=== PATIENT | female | born 1960 | race Caucasian/White ===

== ENCOUNTER 2018-03-02 09:19 | Outpatient (CLI) | payer BC | END 2018-03-02 09:20 | disposition home or self-care (01) | LOC: BICMAMMO 09:19 | PROVIDERS: ATTEND Nurse Practitioner Family | DX: R92.8 Other abnormal and inconclusive findings on diagnostic imaging of breast (principal); Z85.3 Personal history of malignant neoplasm of breast; Z80.3 Family history of malignant neoplasm of breast; L90.5 Scar conditions and fibrosis of skin | CPT/HCPCS: 77066; G0279 ==

== ENCOUNTER 2018-08-12 09:25 | Outpatient (CLI) | payer BC | END 2018-08-12 09:26 | disposition home or self-care (01) | LOC: BICMAMMO 09:25 | PROVIDERS: ATTEND Obstetrics & Gynecology | DX: Z08 Encounter for follow-up examination after completed treatment for malignant neoplasm (principal); R92.2 Inconclusive mammogram; Z98.890 Other specified postprocedural states; Z80.3 Family history of malignant neoplasm of breast; Z85.3 Personal history of malignant neoplasm of breast | CPT/HCPCS: 77066; G0279 ==

== ENCOUNTER 2019-08-16 12:38 | Outpatient (CLI) | payer BC ==
--- NOTE | 2019-08-16 14:13 | MMO ---
Bilateral MAMMO Bilat Diag [facility]. CLINICAL HISTORY: Patient is 58 years old and is seen for diagnostic exam. The patient has no family history of breast cancer. The patient has a history of Ultrasound guided core biopsy procedure revealed invasive ductal right breast carcinoma in July,. The patient has a history of right Ultrasound Guided Core Biopsy in July, and right Lumpectomy in 2016 - malignant. VIEWS: The views performed were: bilateral craniocaudal with tomosynthesis; bilateral mediolateral oblique with tomosynthesis; and bilateral mediolateral with tomosynthesis. FILMS COMPARED: The present examination has been compared to prior imaging studies performed at [facility] on 09/09/2016, 08/11/2017, 03/02/2018 and 08/12/2018. This study has been interpreted with the assistance of computer-aided detection. MAMMOGRAM FINDINGS: There are scattered fibroglandular densities. There is a post-surgical scar seen in the posterior upper-outer region of the right breast. Finding remains unchanged from the prior study. There are no suspicious masses, suspicious calcifications, or new areas of architectural distortion. IMPRESSION: THERE IS NO MAMMOGRAPHIC EVIDENCE OF MALIGNANCY. A ROUTINE FOLLOW-UP MAMMOGRAM IN 1 YEAR IS RECOMMENDED. THE RESULTS OF THIS EXAM WERE SENT TO THE PATIENT. ACR BI-RADS Category 2 - Benign finding MAMMOGRAPHY NOTE: 1. A negative mammogram report should not delay a biopsy if a dominant of clinically suspicious mass is present. 2. Approximately 10% to 15% of breast cancers are not detected by mammography. 3. Adenosis and dense breasts may obscure an underlying neoplasm. Reported by: ELLIE BOOTH MD Electonically Signed: [id number]
== END 2019-08-16 12:39 | disposition home or self-care (01) ==
LOC: BICMAMMO 12:38
PROVIDERS: ATTEND Obstetrics & Gynecology
DX: Z08 Encounter for follow-up examination after completed treatment for malignant neoplasm (principal); Z85.3 Personal history of malignant neoplasm of breast
CPT/HCPCS: 77066; G0279

== ENCOUNTER 2020-03-27 09:17 | Outpatient (CLI) | payer BC ==
--- NOTE | 2020-03-27 11:27 | BD ---
BONE DENSITOMETRY USING DEXA: Date: 03/27/2020 HISTORY: Postmenopausal screening for osteoporosis. FINDINGS: Lumbar Spine: BMD (g/cm2) L1 0.883 T-Score: -1.0 Z-Score: 0.2 L2 0.873 T-Score: -7.4 Z-Score: -0.1 L3 0.904 T-Score: -1.6 Z-Score: -0.2 L4 0.947 T-Score: -1.0 Z-Score: 0.4 L1-L4 0.903 T-Score: -1.3 Z-Score: 0.1 Femoral Neck: 0.677 T-Score: -1.6 Z-Score: -0.3 Total Femur: 0.960 T-Score: 0.1 Z-Score: 1.1 The 10 year fracture risk for a major osteoporotic fracture is 13% and for a hip fracture is 1.1%. IMPRESSION: Osteopenia. POS: [facility]
== END 2020-03-27 09:18 | disposition home or self-care (01) ==
LOC: BICMAMMO 09:17
PROVIDERS: ATTEND Internal Medicine Hematology & Oncology
DX: Z13.820 Encounter for screening for osteoporosis (principal); N95.8 Other specified menopausal and perimenopausal disorders; M85.89 Other specified disorders of bone density and structure, multiple sites
CPT/HCPCS: 77080

== ENCOUNTER 2020-12-11 10:12 | Outpatient (CLI) | payer BC | END 2020-12-11 10:13 | disposition home or self-care (01) | LOC: BICMAMMO 10:12 | PROVIDERS: ATTEND Obstetrics & Gynecology | DX: Z08 Encounter for follow-up examination after completed treatment for malignant neoplasm (principal); Z85.3 Personal history of malignant neoplasm of breast | CPT/HCPCS: 77066; G0279 ==

== ENCOUNTER 2022-11-27 10:25 | Outpatient (CLI) | payer OTHER | END 2022-11-27 10:26 | disposition home or self-care (01) | LOC: BICULT 10:25 | PROVIDERS: ATTEND Urology | DX: N39.0 Urinary tract infection, site not specified (principal); R35.0 Frequency of micturition; N39.41 Urge incontinence; N20.0 Calculus of kidney; N28.1 Cyst of kidney, acquired; Z87.442 Personal history of urinary calculi; Z80.51 Family history of malignant neoplasm of kidney | CPT/HCPCS: 76770 ==

== ENCOUNTER 2022-12-16 10:04 | Outpatient (CLI) | payer OTHER | END 2022-12-16 10:05 | disposition home or self-care (01) | LOC: BICMAMMO 10:04 | PROVIDERS: ATTEND Obstetrics & Gynecology | DX: Z13.820 Encounter for screening for osteoporosis (principal); Z12.31 Encounter for screening mammogram for malignant neoplasm of breast; M81.0 Age-related osteoporosis without current pathological fracture; M85.851 Other specified disorders of bone density and structure, right thigh; M85.852 Other specified disorders of bone density and structure, left thigh; M85.88 Other specified disorders of bone density and structure, other site; Z98.890 Other specified postprocedural states; Z80.3 Family history of malignant neoplasm of breast; Z85.3 Personal history of malignant neoplasm of breast | CPT/HCPCS: 77063; 77067; 77080 ==

== ENCOUNTER 2023-12-18 09:52 | Outpatient (CLI) | payer OTHER | END 2023-12-18 09:53 | disposition home or self-care (01) | LOC: BICMAMMO 09:52 | PROVIDERS: ATTEND Obstetrics & Gynecology | DX: Z12.31 Encounter for screening mammogram for malignant neoplasm of breast (principal); Z80.3 Family history of malignant neoplasm of breast; Z85.3 Personal history of malignant neoplasm of breast; Z98.890 Other specified postprocedural states | CPT/HCPCS: 77063; 77067 ==